=== PATIENT | male | born 1990 | race Two or more races ===

== ENCOUNTER 2021-02-16 22:31 | Emergency (ER) | payer SELFPAY ==
[~2021-02-16] VITALS: Ht 165.1 cm; Wt 94.3 kg
[2021-02-16 22:39] VITALS: BP 163/101
[2021-02-17] MEDS ORDERED: cefTRIAXone SOD 1,000 MG VL IM ONE (02:45)
[2021-02-17] MEDS ORDERED: BACITRACIN TOP OINT 1 UD PKG TOP ONE (04:00)
== END 2021-02-17 04:05 | disposition home or self-care (01) ==
LOC: EDBD 22:31 → ER 22:33
DX: S61.412A Laceration without foreign body of left hand, initial encounter (principal); W22.8XXA Striking against or struck by other objects, initial encounter; Y93.89 Activity, other specified; Y92.89 Other specified places as the place of occurrence of the external cause; Y99.8 Other external cause status
CPT/HCPCS: 12004; 73130; 96372; 99283; J0696